=== PATIENT | female | born 1980 | race Caucasian/White ===

== ENCOUNTER 2018-02-22 20:02 | Emergency (ER) | payer OTHER ==
[~2018-02-22] VITALS: Ht 165.1 cm; Wt 129.3 kg
== END 2018-02-23 20:18 | disposition home or self-care (01) ==
LOC: ER 20:02
DX: N93.8 Other specified abnormal uterine and vaginal bleeding (principal); D64.89 Other specified anemias
CPT/HCPCS: 36430; 86904; 86922; P9021